=== PATIENT | male | born 1990 | race Caucasian/White ===

== ENCOUNTER 2019-04-08 13:58 | Emergency (ER) | payer SELFPAY ==
[~2019-04-08] VITALS: Ht 165 cm; Wt 90.6 kg
--- NOTE | 2019-04-08 14:26 | ED General ---
General Chief Complaint: Overdose Stated Complaint: OVERDOSE;ALCOHOL ABUSE Nursing Triage Note: STATES HE DRANK A QUART OF MOONSHINE AND TOOK X8 PERCOCET [facility]. PT STATES HE WAS TRYING TO KILL HIMSELF. PT STATES HE FEELS DIZZY, SLEEPY, AND DEPRESSED. Nursing Sepsis Screen: No Definite Risk Source of Information: Patient Exam Limitations: No Limitations History of Present Illness Date Seen by Provider: Apr 08, 2019 Time Seen by Provider: 14:23 Initial Comments To ER with reports of overdose and alcohol abuse. Brought to ER by his sister lexa mcgrath reports of these things occurring about one to 2 hours prior to arrival. I spoke with the patient and his sister separately, both stories are consistent. They report that he's had a lifetime of depression secondary to bipolar disorder, not currently on medication. He's had increasing depression for the past few months due to financial troubles. 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 He was counting on his job to get back on his feet financially. Upon hearing this news he drank a quart of moonshine and 8 Percocet about one to 2 hours prior to arrival. Allegedly the Percocet was left over from his 's delivery of her child 2 years ago. He has never tried to hurt himself before, has never been hospitalized for mental health reasons. He [place] in [place] and formerly saw Dr. Fontana, has not seen him in quite a while. He was also supposed to be on lisinopril 10 mg daily for hypertension but hasn't been on that for a couple of months. Timing/Duration: 2-3 Days Severity: Moderate Associated Systoms: Denies Symptoms Allergies and Home Medications Allergies Coded Allergies: No Known Drug Allergies (Unverified , 04/08/19) Home Medications No Active Prescriptions or Reported Meds Patient Home Medication List Home Medication List Reviewed: Yes Review of Systems Review of Systems Constitutional: see HPI EENTM: see HPI Respiratory: no symptoms reported Cardiovascular: no symptoms reported Genitourinary: no symptoms reported Musculoskeletal: no symptoms reported Skin: no symptoms reported Psychiatric/Neurological: See HPI, Depressed Hematologic/Lymphatic: No Symptoms Reported Immunological/Allergic: no symptoms reported Past Vmkzldd-Sznhaq-Oiqatm Hx Patient Social History Alcohol Use: Denies Use Recreational Drug Use: Yes (POT) Type Used: Smokeless Tobacco Recent Foreign Travel: No Contact w/Someone Who Travel: No Recent Infectious Disease Expo: No Past Medical History Surgeries: Yes (PENILE) Orthopedic Respiratory: Yes Asthma Cardiac: Yes Hypertension Neurological: No Gastrointestinal: No Musculoskeletal: No Endocrine: No HEENT: No Cancer: No Psychosocial: No Physical Exam Vital Signs Vital Signs - First Documented 04/08/19 14:04 Temp 36.5 Pulse 71 Resp 16 B/P (MAP) 161/87 (111) Pulse Ox 100 O2 Delivery Room Air Capillary Refill : Less Than 3 Seconds Height, Weight, BMI Height: '" Weight: lbs. oz. kg; 33.00 BMI Method: General Appearance: No Apparent Distress, WD/WN, Other (alert, oriented, very pleasant and seems sincere in his desire for help. His sister is present, very supportive and helpful as well.) Eyes: Bilateral Eye Normal Inspection, Bilateral Eye PERRL, Bilateral Eye EOMI HEENT: PERRL/EOMI, TMs Normal Neck: Full Range of Motion, Normal Inspection Respiratory: Normal Breath Sounds, No Accessory Muscle Use, No Respiratory Distress Cardiovascular: Regular Rate, Rhythm, Normal Peripheral Pulses Gastrointestinal: Normal Bowel Sounds, Non Tender, Soft Extremity: Normal Capillary Refill, Normal Inspection Neurologic/Psychiatric: Alert, Oriented x3 Skin: Normal Color, Warm/Dry Progress/Results/Core Measures Suspected Sepsis Recent Fever Within 48 Hours: No Infection Criteria Present: None New/Unexplained Altered Menta: No Sepsis Screen: No Definite Risk SIRS Temperature: Pulse: 71 Respiratory Rate: 16 Laboratory Tests 04/08/19 14:27: White Blood Count 10.5 Blood Pressure 161 /87 Mean: 111 Laboratory Tests 04/08/19 14:27: Creatinine 0.79, INR Comment 0.9, Platelet Count 405H, Total Bilirubin 0.2 Results/Orders Lab Results Laboratory Tests Test 04/08/19 14:27 04/08/19 15:41 Range/Units White Blood Count 10.5 4.3-11.0 10^3/uL Red Blood Count 5.18 4.35-5.85 10^6/uL Hemoglobin 15.4 13.3-17.7 G/DL Hematocrit 45 40-54 % Mean Corpuscular Volume 87 80-99 FL Mean Corpuscular Hemoglobin 30 25-34 PG Mean Corpuscular Hemoglobin Concent 34 32-36 G/DL Red Cell Distribution Width 13.1 10.0-14.5 % Platelet Count 405 H 130-400 10^3/uL Mean Platelet Volume 8.8 7.4-10.4 FL Neutrophils (%) (Auto) 60 42-75 % Lymphocytes (%) (Auto) 30 12-44 % Monocytes (%) (Auto) 9 0-12 % Eosinophils (%) (Auto) 2 0-10 % Basophils (%) (Auto) 0 0-10 % Neutrophils # (Auto) 6.3 1.8-7.8 X 10^3 Lymphocytes # (Auto) 3.1 1.0-4.0 X 10^3 Monocytes # (Auto) 0.9 0.0-1.0 X 10^3 Eosinophils # (Auto) 0.2 0.0-0.3 10^3/uL Basophils # (Auto) 0.0 0.0-0.1 10^3/uL Prothrombin Time 12.7 12.2-14.7 SEC INR Comment 0.9 0.8-1.4 Sodium Level 138 135-145 MMOL/L Potassium Level 3.5 L 3.6-5.0 MMOL/L Chloride Level 102 98-107 MMOL/L Carbon Dioxide Level 21 21-32 MMOL/L Anion Gap 15 H 5-14 MMOL/L Blood Urea Nitrogen 12 7-18 MG/DL Creatinine 0.79 0.60-1.30 MG/DL Estimat Glomerular Filtration Rate > 60 BUN/Creatinine Ratio 15 Glucose Level 131 H 70-105 MG/DL Calcium Level 9.4 8.5-10.1 MG/DL Corrected Calcium 8.5-10.1 MG/DL Total Bilirubin 0.2 0.1-1.0 MG/DL Aspartate Amino Transf (AST/SGOT) 19 5-34 U/L Alanine Aminotransferase (ALT/SGPT) 34 0-55 U/L Alkaline Phosphatase 70 40-136 U/L Total Protein 7.6 6.4-8.2 GM/DL Albumin 4.7 H 3.2-4.5 GM/DL Salicylates Level < 5.0 L 5.0-20.0 MG/DL Acetaminophen Level 11 10-30 UG/ML Serum Alcohol < 10 <10 MG/DL Urine Color YELLOW Urine Clarity CLEAR Urine pH 5.0 5-9 Urine Specific Maynard >=1.030 1.016-1.022 Urine Protein TRACE NEGATIVE Urine Glucose (UA) NEGATIVE NEGATIVE Urine Ketones NEGATIVE NEGATIVE Urine Nitrite NEGATIVE NEGATIVE Urine Bilirubin NEGATIVE NEGATIVE Urine Urobilinogen 0.2 < = 1.0 MG/DL Urine Leukocyte Esterase NEGATIVE NEGATIVE Urine RBC (Auto) NEGATIVE NEGATIVE Urine RBC NONE /HPF Urine WBC NONE /HPF Urine Crystals PRESENT H /LPF Urine Amorphous Sediment FEW GERRI URATES H /LPF Urine Bacteria TRACE /HPF Urine Casts PRESENT /LPF Urine Hyaline Casts 2-5 H /LPF Urine Mucus MODERATE H /LPF Urine Culture Indicated NO Urine Opiates Screen NEGATIVE NEGATIVE Urine Oxycodone Screen POSITIVE H NEGATIVE Urine Methadone Screen NEGATIVE NEGATIVE Urine Propoxyphene Screen NEGATIVE NEGATIVE Urine Barbiturates Screen NEGATIVE NEGATIVE Ur Tricyclic Antidepressants Screen NEGATIVE NEGATIVE Urine Phencyclidine Screen NEGATIVE NEGATIVE Urine Amphetamines Screen NEGATIVE NEGATIVE Urine Methamphetamines Screen NEGATIVE NEGATIVE Urine Benzodiazepines Screen NEGATIVE NEGATIVE Urine Cocaine Screen NEGATIVE NEGATIVE Urine Cannabinoids Screen POSITIVE H NEGATIVE My Orders Orders - DORIS CLINTON APRN Ua Culture If Indicated (04/08/19 14:03) Cbc With Automated Diff (04/08/19 14:03) Comprehensive Metabolic Panel (04/08/19 14:03) Salicylate (04/08/19 14:03) Alcohol (04/08/19 14:03) Drug Screen Stat (Urine) (04/08/19 14:03) Ed Iv/Invasive Line Start (04/08/19 14:03) Ekg Tracing (04/08/19 14:03) Protime With Inr (04/08/19 14:03) Acetaminophen (04/08/19 14:03) Ondansetron Injection (Zofran Injectio (04/08/19 14:30) Ed Iv/Invasive Line Start (04/08/19 16:50) Ns Iv 500 Ml (Sodium Chloride 0.9%) (04/08/19 17:00) Ketamine Syringe (Ed Only) (Ketamine Syr (04/08/19 17:00) General/Regular (04/08/19 Lunch) Medications Given in ED Current Medications Medications Dose Ordered Sig/Kali Route Start Time Stop Time Status Last Admin Dose Admin Ketamine HCl 45 mg ONCE ONCE IV 04/08/19 17:00 04/08/19 17:01 DC 04/08/19 17:15 45 MG Vital Signs/I&O 04/08/19 14:04 Temp 36.5 Pulse 71 Resp 16 B/P (MAP) 161/87 (111) Pulse Ox 100 O2 Delivery Room Air Capillary Refill : Less Than 3 Seconds Blood Pressure Mean: 111 Departure Communication (Admissions) 1427-Vomiting at this time after IV blood draw. States he got nervous about that. 155-remains alert and oriented without nausea or vomiting, speech is clear without slurring, behavior is normal without apparent intoxication. Labs cons istent with this. 1651-remains alert walking around the room talking pleasant cooperative. His sister remains at the bedside. I discussed with him inpatient treatment versus outpatient. He states that he's had depression for a while but got out of control today when he found the news out about not receiving the job. He states that he shouldn't have done what he did. I discussed with him that I would need to feel safe if he were to go home, he states that he wouldn't do this again because today was an error in judgment, he states that he has a who he loads and a daughter who he cannot lose and for those reasons would not attempt to harm himself again. His sister remains at the bedside, supportive and agrees that this would be an okay plan. I discussed with him a single dose of intravenous ketamine has been shown to reduce suicidal thoughts. He is agreeable to trying this and would like a prescription for an antidepressant outpatient. 1820-patient's , daughter, mother and father are now at the bedside, all are supportive and agreement with this plan of going home. Ketamine infusion has finished, he is doing well. Impression Primary Impression: Severe depression Disposition: HOME, SELF-CARE Condition: Improved Departure-Patient Inst. Decision time for Depature: 18:19 Patient Instructions: Medicines for Depression Add. Discharge Instructions: 1. Return to ER for any concerns 2. FOllow up with your doctor next week for further care and management of medicines. All discharge instructions reviewed with patient and/or family. Voiced understanding. Scripts Escitalopram Oxalate (Escitalopram Oxalate) 10 Mg Tablet 10 MG PO DAILY, #45 TAB 1 tablet daily for 7 days then increase to 2 tablets daily thereafter. Prov: DORIS CLINTON APRN 04/08/19 DORIS CLINTON APRN Apr 08, 2019 14:26
[2019-04-08] MEDS ORDERED: ONDANSETRON 4 MG/2 ML (SDV) Z0FRAN IVP ONE (14:30)
--- NOTE | 2019-04-08 14:30 | NUR ---
PT VOMITED LARGE AMOUNT WHEN LABS DRAWN. NO SMELL OF ALCOHOL NOTED
[2019-04-08 14:38] LABS: BASOPHILS % (AUTO) 0 % (0-10); EOSINOPHILS # (AUTO) 0.2 10^3/uL (0.0-0.3); EOSINOPHILS % (AUTO) 2 % (0-10); HEMATOCRIT 45 % (40-54); HEMOGLOBIN 15.4 G/DL (13.3-17.7); LYMPHOCYTES # (AUTO) 3.1 X 10^3 (1.0-4.0); LYMPHOCYTES % (AUTO) 30 % (12-44); MEAN CORPUSCULAR HEMOGLOBIN 30 PG (25-34); MEAN CORPUSCULAR HGB CONC 34 G/DL (32-36); MEAN CORPUSCULAR VOLUME 87 FL (80-99); MEAN PLATELET VOLUME 8.8 FL (7.4-10.4); MONOCYTES # (AUTO) 0.9 X 10^3 (0.0-1.0); MONOCYTES % (AUTO) 9 % (0-12); NEUTROPHILS # (AUTO) 6.3 X 10^3 (1.8-7.8); NEUTROPHILS % (AUTO) 60 % (42-75); PLATELET COUNT 405 10^3/uL (130-400); RED CELL DISTRIBUTION WIDTH 13.1 % (10.0-14.5); WHITE BLOOD COUNT 10.5 10^3/uL (4.3-11.0)
[2019-04-08 14:47] LABS: INR 0.9 (0.8-1.4); PROTHROMBIN TIME PATIENT 12.7 SEC (12.2-14.7)
[2019-04-08 14:55] LABS: ACETAMINOPHEN 11 UG/ML (10-30); ALANINE AMINOTRANSFERASE 34 U/L (0-55); ALBUMIN 4.7 GM/DL (3.2-4.5); ALKALINE PHOSPHATASE 70 U/L (40-136); BILIRUBIN,TOTAL 0.2 MG/DL (0.1-1.0); BUN/CREATININE RATIO 15; CALCIUM 9.4 MG/DL (8.5-10.1); CARBON DIOXIDE 21 MMOL/L (21-32); CHLORIDE 102 MMOL/L (98-107); CREATININE SERUM 0.79 MG/DL (0.60-1.30); GFR ESTIMATED > 60; GLUCOSE 131 MG/DL (70-105); POTASSIUM 3.5 MMOL/L (3.6-5.0); SALICYLATE < 5.0 MG/DL (5.0-20.0); SODIUM 138 MMOL/L (135-145); TOTAL PROTEIN 7.6 GM/DL (6.4-8.2)
--- NOTE | 2019-04-08 15:15 | NUR ---
PT NO LONGER NAUSEATED
[2019-04-08 16:09] LABS: AMPHETAMINE SCREEN, URINE NEGATIVE (NEGATIVE); BARBITURATE SCREEN URINE NEGATIVE (NEGATIVE); BENZODIAZEPINES SCREEN URINE NEGATIVE (NEGATIVE); CANNABINOID SCREEN, URINE POSITIVE (NEGATIVE); COCAINE SCREEN URINE NEGATIVE (NEGATIVE); METHADONE STAT NEGATIVE (NEGATIVE); METHAMPHETAMINE SCREEN URINE S NEGATIVE (NEGATIVE); OPIATE SCREEN URINE NEGATIVE (NEGATIVE); OXYCODONE STAT POSITIVE (NEGATIVE); PROPOXYPHENE STAT NEGATIVE (NEGATIVE); TRICYCLIC ANTIDEPRESSANTS SCRE NEGATIVE (NEGATIVE)
[2019-04-08 16:20] LABS: BILIRUBIN,URINE NEGATIVE (NEGATIVE); CLARITY,URINE CLEAR; COLOR,URINE YELLOW; GLUCOSE, URINE (UA) NEGATIVE (NEGATIVE); KETONES,URINE NEGATIVE (NEGATIVE); LEUKOCYTE ESTERASE ,URINE NEGATIVE (NEGATIVE); NITRITE,URINE NEGATIVE (NEGATIVE); PROTEIN,URINE TRACE (NEGATIVE)
[2019-04-08 16:30] LABS: AMORPHOUS SEDIMENT,UR FEW AMOR URATES /LPF; BACTERIA,URINE TRACE /HPF
[2019-04-08] MEDS ORDERED: NS IV 500 ML 500 ML IV SCH (17:00)
[2019-04-08] MEDS ORDERED: KETAMINE/NaCl 50 MG/5 ML SYRINGE (ED ONLY) IV ONE (17:00)
[2019-04-08] MEDS ORDERED: ESCI10TA55 PO (18:20)
[2019-04-08 18:30] VITALS: BP 161/87
[2019-04-08] MEDS ORDERED: ONDANSETRON 4 MG (ZOFRAN) ORAL DISSOLVE TAB ONE (18:39)
--- NOTE | 2019-04-08 18:44 | NUR ---
PT STARTED VOMITING, ZOFRAN ODT GIVEN ORDERED
== END 2019-04-08 18:37 | disposition home or self-care (01) ==
LOC: ER 14:00
DX: F32.9 Major depressive disorder, single episode, unspecified (principal); J45.909 Unspecified asthma, uncomplicated; I10 Essential (primary) hypertension; F17.290 Nicotine dependence, other tobacco product, uncomplicated
CPT/HCPCS: 36415; 80053; 80306; 80320; 80329; 81000; 85025; 85610; 93005; 96361; 96374